=== PATIENT | male | born 1990 | race Caucasian/White ===

== ENCOUNTER 2017-11-29 16:48 | Observation (INO) | payer SELFPAY ==
[2017-11-29] VITALS (7 sets, daily range): BP systolic 90–116; BP diastolic 51–84; PULSE 101–123; RESP 15–23; TEMP 97.6; O2SAT 97–100
[~2017-11-29] VITALS: Ht 195.6 cm; Wt 72.0 kg
--- NOTE | 2017-11-29 17:26 | PD ---
HPI Chief Complaint: OD/ Ingestion Time Seen by Provider: 17:08 Travel History International Travel<30 days: No Contact w/Intl Traveler<30days: No Traveled to known affect area: No History of Present Illness HPI 26-year-old male brought in by ambulance for altered mental status. The patient was found by friends in a motel room altered. He has history of IV drug abuse. His blood glucose was noted to be 25. He was given D50 by paramedics as well as Narcan. Patient's mental status significantly improved after receiving Narcan. He admits to overdosing on heroin today. He also smoked crack cocaine. His mom is present and tells me that he was making suicidal statements earlier today. The patient is denying suicidal ideation. Patient's mom believes that this may have been an intentional overdose as the patient has a child on the way. She tells me he has history of depression. She would like him to be placed under a Aguirre act. PFSH Past Medical History Depression: Yes Neurologic: Yes (CONCUSSION X2) Seizures: Yes ( A CHILD) Influenza Vaccination: No Past Surgical History Oral Surgery: Yes Social History Alcohol Use: No Tobacco Use: Yes (07/22 PPD) Substance Use: Yes (HEROIN, MARIJUANA, CRACK) Allergies-Medications (Allergen,Severity, Reaction): Coded Allergies: No Known Allergies (Unverified , 11/29/17) Review of Systems Except as stated in HPI: all other systems reviewed are Neg Physical Exam Narrative GENERAL: Well-developed, well-nourished, drowsy, easily arousable, no apparent distress. SKIN: Focused skin assessment warm/dry. HEAD: Atraumatic. Normocephalic. EYES: Pupils equal, round, 3 mm, reactive to light. No scleral icterus. No injection or drainage. ENT: No nasal bleeding or discharge. Mucous membranes pink and dry. NECK: Trachea midline. No JVD. CARDIOVASCULAR: Regular rate and rhythm. No murmur appreciated. RESPIRATORY: No accessory muscle use. Clear to auscultation. Breath sounds equal bilaterally. GASTROINTESTINAL: Abdomen soft, non-tender, nondistended. MUSCULOSKELETAL: No obvious deformities. No clubbing. No cyanosis. No edema. NEUROLOGICAL: Drowsy, easily arousable. No focal deficits. No obvious cranial nerve deficits. Motor grossly within normal limits. Normal speech. PSYCHIATRIC: Unable to assess. Data Data Last Documented VS Vital Signs Date Time Temp Pulse Resp B/P (MAP) Pulse Ox O2 Delivery O2 Flow Rate FiO2 11/29/17 19:24 106 15 116/57 (76) 97 Room Air Orders Orders Complete Blood Count With Diff (11/29/17 17:13) Comprehensive Metabolic Panel (11/29/17 17:13) Thyroid Stimulating Hormone (11/29/17 17:13) Psych Screen (11/29/17 17:13) Drug Screen, Random Urine (11/29/17 17:13) Alcohol (Ethanol) (11/29/17 17:13) Salicylates (Aspirin) (11/29/17 17:13) Tylenol (Acetaminophen) (11/29/17 17:13) Sodium Chlor 0.9% 1000 Ml Inj (Ns 1000 M (11/29/17 17:30) Sodium Chlor 0.9% 1000 Ml Inj (Ns 1000 M (11/29/17 19:30) Us Abdomen Liver (11/29/17 ) Sodium Chlor 0.9% 1000 Ml Inj (Ns 1000 M (11/29/17 19:45) Labs Laboratory Tests Test 11/29/17 18:36 White Blood Count 13.4 TH/MM3 Red Blood Count 4.51 MIL/MM3 Hemoglobin 14.4 GM/DL Hematocrit 42.1 % Mean Corpuscular Volume 93.4 FL Mean Corpuscular Hemoglobin 31.9 PG Mean Corpuscular Hemoglobin Concent 34.2 % Red Cell Distribution Width 12.6 % Platelet Count 342 TH/MM3 Mean Platelet Volume 7.5 FL Neutrophils (%) (Auto) 93.2 % Lymphocytes (%) (Auto) 2.0 % Monocytes (%) (Auto) 4.8 % Eosinophils (%) (Auto) 0.0 % Basophils (%) (Auto) 0.0 % Neutrophils # (Auto) 12.5 TH/MM3 Lymphocytes # (Auto) 0.3 TH/MM3 Monocytes # (Auto) 0.6 TH/MM3 Eosinophils # (Auto) 0.0 TH/MM3 Basophils # (Auto) 0.0 TH/MM3 CBC Comment DIFF FINAL Differential Comment Blood Urea Nitrogen 23 MG/DL Creatinine 1.24 MG/DL Random Glucose 245 MG/DL Total Protein 7.6 GM/DL Albumin 4.5 GM/DL Calcium Level 8.3 MG/DL Alkaline Phosphatase 62 U/L Aspartate Amino Transf (AST/SGOT) 639 U/L Alanine Aminotransferase (ALT/SGPT) 829 U/L Total Bilirubin 1.0 MG/DL Sodium Level 134 MEQ/L Potassium Level 4.1 MEQ/L Chloride Level 95 MEQ/L Carbon Dioxide Level 26.3 MEQ/L Anion Gap 13 MEQ/L Estimat Glomerular Filtration Rate 50 ML/MIN Thyroid Stimulating Hormone 3rd Gen 0.313 uIU/ML Salicylates Level LESS THAN 1.7 MG/DL Acetaminophen Level LESS THAN 2.0 MCG/ML Ethyl Alcohol Level LESS THAN 3 MG/DL MDM Medical Decision Making Medical Screen Exam Complete: Yes Emergency Medical Condition: Yes Differential Diagnosis Opioid overdose, polysubstance abuse, metabolic abnormality Narrative Course Although the patient is denying suicidal intent, the patient's mom Xochitl Moore strongly believes that he intentionally overdosed on opiates today. He has done this once in the past. He uses opiates regularly. He has a history of depression. She tells me he was making suicidal statements earlier today. She would like him to be placed under a Aguirre Act. Initial vital signs show heart rate 123, blood pressure 107/84, pulse ox 100% on room air. CBC: WBC 13.4, hemoglobin 14.4, hematocrit 42.1, platelets 342, neutrophils 93%. CMP is remarkable for random glucose 245, AST 639, ALT 829. TSH is 0.313. Tylenol, alcohol, and salicylate levels are negative. The patient was made aware of all findings including transaminitis. He reports history of hepatitis C. He is declining right upper quadrant ultrasound. The patient remains tachycardic with a heart rate in the 115 range. He will be given another liter of normal saline IV. At approximately 7:00 PM at the end of my shift the patient was signed out to oncoming provider Dr. Bernstein. Diagnosis Primary Impression: Opioid overdose Qualified Codes: T40.2X4A - Poisoning by other opioids, undetermined, initial encounter Additional Impression: Sinus tachycardia Jose Ackerman MD November 29, 2017 17:26
[2017-11-29] MEDS ORDERED: SODIUM CHLOR 0.9% 1000 ML INJ 1,000 ML IV ONE ×3 (17:30→19:45)
[2017-11-29 18:52] LABS: AUTOMATED NEUTROPHIL # 12.5 TH/MM3 (1.8-7.7); HEMATOCRIT 42.1 % (39.0-51.0); HEMOGLOBIN 14.4 GM/DL (13.0-17.0); LYMPHOCYTE # 0.3 TH/MM3 (1.0-4.8); MEAN CELL VOLUME 93.4 FL (80.0-100.0); MEAN CORPUSCULAR HEMOGLOBIN 31.9 PG (27.0-34.0); MEAN CORPUSCULAR HGB CONC 34.2 % (32.0-36.0); MEAN PLATELET VOLUME 7.5 FL (7.0-11.0); MONO % 4.8 % (0.0-8.0); MONOCYTE # 0.6 TH/MM3 (0-0.9); NEUT % 93.2 % (16.0-70.0); PLATELET COUNT 342 TH/MM3 (150-450); RED BLOOD COUNT 4.51 MIL/MM3 (4.50-5.90); RED CELL DISTRIBUTION WIDTH 12.6 % (11.6-17.2); WHITE BLOOD COUNT 13.4 TH/MM3 (4.0-11.0)
[2017-11-29 19:16] LABS: ALBUMIN 4.5 GM/DL (3.4-5.0); BICARBONATE 26.3 MEQ/L (21.0-32.0); BLOOD UREA NITROGEN 23 MG/DL (7-18); CALCIUM 8.3 MG/DL (8.5-10.1); CHLORIDE 95 MEQ/L (98-107); CREATININE 1.24 MG/DL (0.60-1.30); GLOMERULAR FILTRATION RATE 50 ML/MIN (>89); GLUCOSE,RANDOM 245 MG/DL (74-106); SODIUM (NA) 134 MEQ/L (136-145)
[2017-11-29 19:17] LABS: ALT (GPT) 829 U/L (12-78); AST (GOT) 639 U/L (15-37)
[2017-11-29 19:27] LABS: ALKALINE PHOSPHATASE 62 U/L (45-117); TOTAL PROTEIN 7.6 GM/DL (6.4-8.2)
[2017-11-29 19:30] LABS: ACETAMINOPHEN LESS THAN 2.0 MCG/ML (10.0-30.0)
[2017-11-29] MEDS ORDERED: NALOXONE HCL 0.4 MG/ML AMP ONE ×2 (20:12→20:13)
[2017-11-29] MEDS ORDERED: NALOXONE HCL 2 MG/2 ML VIAL IM ONE (20:15)
[2017-11-29] MEDS ORDERED: NALOXONE HCL 2 MG/2 ML VIAL IV PUSH ONE (20:15)
--- NOTE | 2017-11-29 21:57 | PD ---
Data Data Last Documented VS Vital Signs Date Time Temp Pulse Resp B/P (MAP) Pulse Ox O2 Delivery O2 Flow Rate FiO2 11/29/17 20:21 102 16 104/62 (76) 100 Room Air 11/29/17 19:41 97.6 Orders Orders Complete Blood Count With Diff (11/29/17 17:13) Comprehensive Metabolic Panel (11/29/17 17:13) Thyroid Stimulating Hormone (11/29/17 17:13) Psych Screen (11/29/17 17:13) Drug Screen, Random Urine (11/29/17 17:13) Alcohol (Ethanol) (11/29/17 17:13) Salicylates (Aspirin) (11/29/17 17:13) Tylenol (Acetaminophen) (11/29/17 17:13) Sodium Chlor 0.9% 1000 Ml Inj (Ns 1000 M (11/29/17 17:30) Sodium Chlor 0.9% 1000 Ml Inj (Ns 1000 M (11/29/17 19:30) Sodium Chlor 0.9% 1000 Ml Inj (Ns 1000 M (11/29/17 19:45) Naloxone Inj (Narcan Inj) (11/29/17 20:15) Naloxone Inj (Narcan Inj) (11/29/17 20:15) Naloxone Inj (Narcan Inj) (11/29/17 20:12) Naloxone Inj (Narcan Inj) (11/29/17 20:13) Electrocardiogram (11/29/17 17:04) Labs Laboratory Tests Test 11/29/17 18:36 White Blood Count 13.4 TH/MM3 Red Blood Count 4.51 MIL/MM3 Hemoglobin 14.4 GM/DL Hematocrit 42.1 % Mean Corpuscular Volume 93.4 FL Mean Corpuscular Hemoglobin 31.9 PG Mean Corpuscular Hemoglobin Concent 34.2 % Red Cell Distribution Width 12.6 % Platelet Count 342 TH/MM3 Mean Platelet Volume 7.5 FL Neutrophils (%) (Auto) 93.2 % Lymphocytes (%) (Auto) 2.0 % Monocytes (%) (Auto) 4.8 % Eosinophils (%) (Auto) 0.0 % Basophils (%) (Auto) 0.0 % Neutrophils # (Auto) 12.5 TH/MM3 Lymphocytes # (Auto) 0.3 TH/MM3 Monocytes # (Auto) 0.6 TH/MM3 Eosinophils # (Auto) 0.0 TH/MM3 Basophils # (Auto) 0.0 TH/MM3 CBC Comment DIFF FINAL Differential Comment Blood Urea Nitrogen 23 MG/DL Creatinine 1.24 MG/DL Random Glucose 245 MG/DL Total Protein 7.6 GM/DL Albumin 4.5 GM/DL Calcium Level 8.3 MG/DL Alkaline Phosphatase 62 U/L Aspartate Amino Transf (AST/SGOT) 639 U/L Alanine Aminotransferase (ALT/SGPT) 829 U/L Total Bilirubin 1.0 MG/DL Sodium Level 134 MEQ/L Potassium Level 4.1 MEQ/L Chloride Level 95 MEQ/L Carbon Dioxide Level 26.3 MEQ/L Anion Gap 13 MEQ/L Estimat Glomerular Filtration Rate 50 ML/MIN Thyroid Stimulating Hormone 3rd Gen 0.313 uIU/ML Salicylates Level LESS THAN 1.7 MG/DL Acetaminophen Level LESS THAN 2.0 MCG/ML Ethyl Alcohol Level LESS THAN 3 MG/DL [facility] Medical Record Reviewed: Yes Supervised Visit with SIOBHAN: No Narrative Course CBC & BMP Diagram 11/29/17 18:36 Total Protein 7.6, Albumin 4.5, Calcium Level 8.3 L, Alkaline Phosphatase 62, Aspartate Amino Transf (AST/SGOT) 639 H, Alanine Aminotransferase (ALT/SGPT) 829 H, Total Bilirubin 1.0 APAP/EtOH/Salicylates negative Pt with known hx hep C. He refuses imaging here. There is reasonably low probability for acute intraabdominal pathology. Pt is medically clear for psychiatric evaluation. Please refer to Dr Ackerman's note. Diagnosis Primary Impression: Opioid overdose Qualified Codes: T40.2X4A - Poisoning by other opioids, undetermined, initial encounter Additional Impression: Sinus tachycardia Mo Bernstein MD November 29, 2017 21:57
[2017-11-29] MEDS ORDERED: ASPIRIN 325 MG TAB PO ONE (23:00)
[2017-11-29 23:27] LABS: TROPONIN I LESS THAN 0.02 NG/ML (0.02-0.05)
--- NOTE | 2017-11-29 23:37 | HHI.HP ---
[facility] Primary Care Physician Admission Diagnosis AFIB; Amphetamine Abuse; Polysubstance OD Diagnoses: (1) Overdose Diagnosis: Principal (2) Suicide attempt Diagnosis: Principal (3) A-fib Diagnosis: Principal (4) Tobacco abuse Diagnosis: Principal Travel History International Travel<30 Days: No Contact w/Intl Traveler <30 Da: No Traveled to Known Affected Are: No History of Present Illness This is a 26-year-old male with a PMH of IVDU and Tobacco Abuse who is brought to the ER by EMS after being found down in a motel room following a heroin overdose. S/p Narcan by EMS w/ improvement. Pt admitted to heroin overdose and smoking crack earlier today. Aguirre Act in place as pt relayed to Mother he was having suicidal ideation. Had additional Narcan in ER w/ good response, was medically cleared for Psych, however pt noted to have A-fib w/ HR 110's. No h/o A-fib. S/p IVF in ER. Pt w/ no complaints of chest pain or SOB Review of Systems Except as stated in HPI: all other systems reviewed are Neg ROS: 14 point review of systems otherwise negative. Past Family Social History Past Medical History PMH: IVDU and Tobacco Abuse Past Surgical History PAST SURGICAL HISTORY: Oral Surgery Allergies: Coded Allergies: No Known Allergies (Unverified , 11/29/17) Family History PAST FAMILY HISTORY: Reviewed. No h/o DM or CAD Social History PAST SOCIAL HISTORY: Negative for alcohol. Smokes 1.5ppd. +IVDU w/ Heroin, + Marijuana/Crack Physical Exam Vital Signs Vital Signs Date Time Temp Pulse Resp B/P (MAP) Pulse Ox O2 Delivery O2 Flow Rate FiO2 11/29/17 22:30 114 16 96/54 (68) 98 Room Air 11/29/17 22:00 101 16 105/51 (69) 98 Room Air 11/29/17 20:21 102 16 104/62 (76) 100 Room Air 11/29/17 20:10 105 90/53 (65) 11/29/17 19:41 97.6 11/29/17 19:24 106 15 116/57 (76) 97 Room Air 11/29/17 17:07 123 23 107/84 (92) 100 Physical Exam PE: GENERAL: Young thin white male in no acute distress. Multiple tattoos HEENT: PERRLA, EOMI. No scleral icterus or conjunctival pallor. No lid lag or facial droop. CARDIOVASCULAR: Irregularly irregular, and A. fib, HR 100's. No obvious murmurs to auscultation. No chest tenderness to palpation. RESPIRATORY: No obvious rhonchi or wheezing. Clear to auscultation. Breath sounds equal bilaterally. GASTROINTESTINAL: Abdomen soft, non-tender, nondistended. BS normal. MUSCULOSKELETAL: Extremities without clubbing, cyanosis, or edema. No obvious deformities. NEUROLOGICAL: Awake, alert and oriented x4. No focal neurologic deficits. Moving both upper and lower extremities spontaneously. Laboratory Laboratory Tests Test 11/29/17 18:36 White Blood Count 13.4 Red Blood Count 4.51 Hemoglobin 14.4 Hematocrit 42.1 Mean Corpuscular Volume 93.4 Mean Corpuscular Hemoglobin 31.9 Mean Corpuscular Hemoglobin Concent 34.2 Red Cell Distribution Width 12.6 Platelet Count 342 Mean Platelet Volume 7.5 Neutrophils (%) (Auto) 93.2 Lymphocytes (%) (Auto) 2.0 Monocytes (%) (Auto) 4.8 Eosinophils (%) (Auto) 0.0 Basophils (%) (Auto) 0.0 Neutrophils # (Auto) 12.5 Lymphocytes # (Auto) 0.3 Monocytes # (Auto) 0.6 Eosinophils # (Auto) 0.0 Basophils # (Auto) 0.0 CBC Comment DIFF FINAL Differential Comment Blood Urea Nitrogen 23 Creatinine 1.24 Random Glucose 245 Total Protein 7.6 Albumin 4.5 Calcium Level 8.3 Alkaline Phosphatase 62 Aspartate Amino Transf (AST/SGOT) 639 Alanine Aminotransferase (ALT/SGPT) 829 Total Bilirubin 1.0 Sodium Level 134 Potassium Level 4.1 Chloride Level 95 Carbon Dioxide Level 26.3 Anion Gap 13 Estimat Glomerular Filtration Rate 50 Total Creatine Kinase 307 Troponin I LESS THAN 0.02 Thyroid Stimulating Hormone 3rd Gen 0.313 Salicylates Level LESS THAN 1.7 Acetaminophen Level LESS THAN 2.0 Ethyl Alcohol Level LESS THAN 3 Result Diagram: 11/29/17183511/29/171835 Caprini VTE Risk Assessment Caprini VTE Risk Assessment: No/Low Risk (score <= 1) Caprini Risk Assessment Model Point Value = 1 Point Value = 2 Point Value = 3 Point Value = 5 Age 41-60 Minor surgery BMI > 25 kg/m2 Swollen legs Varicose veins or History of unexplained or recurrent spontaneous Oral contraceptives or hormone replacement Sepsis (< 1 month) Serious lung disease, including pneumonia (< 1 month) Abnormal pulmonary function Acute myocardial infarction Congestive heart failure (< 1 month) History of inflammatory bowel disease Medical patient at bed rest Age 61-74 Arthroscopic surgery Major open surgery (> 45 min) Laparoscopic surgery (> 45 min) Malignancy Confined to bed (> 72 hours) Immobilizing plaster cast Central venous access Age >= 75 History of VTE Family history of VTE Factor V Leiden Prothrombin [id number] Lupus anticoagulant Anticardiolipin antibodies Elevated serum homocysteine Heparin-induced thrombocytopenia Other congenital or acquired thrombophilia Stroke (< 1 month) Elective arthroplasty Hip, pelvis, or leg fracture Acute spinal cord injury (< 1 month) Prophylaxis Regimen Total Risk Factor Score Risk Level Prophylaxis Regimen 0-1 Low Early ambulation 2 Moderate Order ONE of the following: *Sequential Compression Device (SCD) *Heparin 5000 units SQ BID 3-4 Higher Order ONE of the following medications: *Heparin 5000 units SQ TID *Enoxaparin/Lovenox 40 mg SQ daily (WT < 150 kg, CrCl > 30 mL/min) *Enoxaparin/Lovenox 30 mg SQ daily (WT < 150 kg, CrCl > 10-29 mL/min) *Enoxaparin/Lovenox 30 mg SQ BID (WT < 150 kg, CrCl > 30 mL/min) AND/OR *Sequential Compression Device (SCD) 5 or more Highest Order ONE of the following medications: *Heparin 5000 units SQ TID (Preferred with Epidurals) *Enoxaparin/Lovenox 40 mg SQ daily (WT < 150 kg, CrCl > 30 mL/min) *Enoxaparin/Lovenox 30 mg SQ daily (WT < 150 kg, CrCl > 10-29 mL/min) *Enoxaparin/Lovenox 30 mg SQ BID (WT < 150 kg, CrCl > 30 mL/min) AND *Sequential Compression Device (SCD) Assessment and Plan Problem List: (1) Overdose ICD Code: T50.901A - Poisoning by unspecified drugs, medicaments and biological substances, accidental (unintentional), initial encounter (2) Suicide attempt ICD Code: T14.91XA - Suicide attempt, initial encounter (3) A-fib ICD Code: I48.91 - Unspecified atrial fibrillation (4) Tobacco abuse ICD Code: Z72.0 - Tobacco use Assessment and Plan A/P: 1. Overdose: s/p Heroin Overdose earlier today, admits to using Crack Cocaine as well, given Narcan by EMS w/ good response, additional Narcan in ER, now awake/alert. Telemetry, IVF for hydration. 2. Suicide Attempt: Per report, pt had relayed to Mother he was suicidal, currently under Aguirre Act. Sitter, Consult Psych for further evaluation. 3. A-fib: HR 110's while in ER, likely related to drug use, continue IVF, telemetry, admit for Observation for closer monitoring. If persistent, will consult Cardiology in am for further evaluation. 4. Tobacco Abuse: Pt counselled. No NicoDerm to avoid vasoconstriction 5. DVT Prophylaxis: SCD/Teds 6. Social work for d/c planning as needed. 7. Case discussed w/ ER physician at length, labs/records/imaging reviewed by Judith Laura MD November 29, 2017 23:37
[2017-11-29] MEDS ORDERED: LACTULOSE SYRUP 20 GM/30 ML CUP PO PRN (23:45)
[2017-11-29] MEDS ORDERED: MAGNESIUM HYDROXIDE SUSP 30 ML CUP PO PRN (23:45)
[2017-11-29] MEDS ORDERED: METOCLOPRAMIDE HCL 10 MG/2 ML VIAL IV PUSH PRN (23:45)
[2017-11-29] MEDS ORDERED: BISACODYL 10 MG SUPP RECTAL PRN (23:45)
[2017-11-29] MEDS ORDERED: SODIUM CHLORIDE 0.9% FLUSH 10 ML FLUSH IV FLUSH PRN (23:45)
[2017-11-29] MEDS ORDERED: SENNOSIDES 8.6 MG TAB PO PRN (23:45)
[2017-11-30] VITALS (16 sets, daily range): BP systolic 96–114; BP diastolic 51–68; PULSE 70–99; RESP 16–20; TEMP 97.5–98.6; O2SAT 96–98
[2017-11-30 00:01] LABS: INTERNATIONAL NORMALIZED RATIO 1.3 RATIO; PROTHROMBIN TIME - PATIENT 12.7 SEC (9.8-11.6)
--- NOTE | 2017-11-30 00:18 | RADRPT ---
EXAM DATE/TIME: 11/29/2017 23:42 [facility] COMPARISON: No previous studies available for comparison. INDICATIONS : Overdosed tonight. Chest pain and shortness of breath. MEDICAL HISTORY : Seizures. SURGICAL HISTORY : None. ENCOUNTER: Initial ACUITY: 1 day PAIN SCORE: 6/10 LOCATION: Bilateral chest FINDINGS: 2 AP erect portable views of the chest demonstrates the lungs to be symmetrically aerated without higinio dence of mass, infiltrate or effusion. The cardiomediastinal contours are unremarkable. Osseous str uctures are intact. CONCLUSION: No acute disease. Shaquille French MD on November 30, 2017 at 0:16 Board Certified Radiologist. This report was verified electronically.
[2017-11-30] MEDS: SODIUM CHLOR 0.9% 1000 ML INJ 1,000 ML IV SCH ×3 (01:16→13:27)
[2017-11-30 08:15] LABS: AUTOMATED NEUTROPHIL # 4.5 TH/MM3 (1.8-7.7); BASOPHIL % 0.3 % (0.0-2.0); EOSINOPHIL # 0.2 TH/MM3 (0-0.4); EOSINOPHIL % 2.6 % (0.0-4.0); HEMATOCRIT 37.2 % (39.0-51.0); HEMOGLOBIN 12.7 GM/DL (13.0-17.0); LYMPH % 25.3 % (9.0-44.0); LYMPHOCYTE # 1.9 TH/MM3 (1.0-4.8); MEAN CELL VOLUME 93.1 FL (80.0-100.0); MEAN CORPUSCULAR HEMOGLOBIN 31.7 PG (27.0-34.0); MEAN PLATELET VOLUME 8.1 FL (7.0-11.0); MONO % 12.6 % (0.0-8.0); NEUT % 59.2 % (16.0-70.0); PLATELET COUNT 274 TH/MM3 (150-450); RED BLOOD COUNT 3.99 MIL/MM3 (4.50-5.90); RED CELL DISTRIBUTION WIDTH 12.6 % (11.6-17.2); WHITE BLOOD COUNT 7.6 TH/MM3 (4.0-11.0)
[2017-11-30 08:34] LABS: ALBUMIN 3.5 GM/DL (3.4-5.0); AST (GOT) 462 U/L (15-37); BICARBONATE 27.1 MEQ/L (21.0-32.0); BLOOD UREA NITROGEN 20 MG/DL (7-18); CALCIUM 7.8 MG/DL (8.5-10.1); CHLORIDE 105 MEQ/L (98-107); CREATININE 0.66 MG/DL (0.60-1.30); GLOMERULAR FILTRATION RATE 104 ML/MIN (>89); GLUCOSE,RANDOM 72 MG/DL (74-106); SODIUM (NA) 139 MEQ/L (136-145)
[2017-11-30 08:35] LABS: ALT (GPT) 672 U/L (12-78)
[2017-11-30 08:38] LABS: ALKALINE PHOSPHATASE 45 U/L (45-117); TOTAL BILIRUBIN ADULT 0.4 MG/DL (0.2-1.0)
[2017-11-30] MEDS ORDERED: DOCUSATE SODIUM 50 MG/SENNA 8.6 MG TAB PO SCH (09:00)
[2017-11-30] MEDS ORDERED: SODIUM CHLORIDE 0.9% FLUSH 10 ML FLUSH IV FLUSH SCH (09:00)
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
--- NOTE | 2017-11-30 16:22 | HHI.PR ---
Subjective Remarks Patient says he is feeling much better. Feels like going home. Denies any chest pain or shortness of breath. Denies nausea or vomiting. Denies abdominal pain. Objective Vital Signs Date Time Temp Pulse Resp B/P (MAP) Pulse Ox O2 Delivery O2 Flow Rate FiO2 11/30/17 14:00 70 11/30/17 13:00 82 11/30/17 12:00 86 11/30/17 11:04 98.0 85 16 112/62 (79) 97 11/30/17 11:00 85 11/30/17 10:00 80 11/30/17 09:00 80 11/30/17 08:00 82 11/30/17 07:34 Room Air 11/30/17 07:34 97.5 97 16 114/68 (83) 97 11/30/17 07:00 85 11/30/17 06:00 87 11/30/17 05:09 Room Air 11/30/17 05:00 93 11/30/17 04:00 99 11/30/17 04:00 98.2 99 18 96/64 (75) 98 11/30/17 03:00 88 11/30/17 02:00 98.6 88 20 96/63 (74) 96 11/30/17 02:00 88 11/30/17 01:45 11/30/17 00:36 96 16 102/51 (68) 98 Room Air 11/29/17 22:30 114 16 96/54 (68) 98 Room Air 11/29/17 22:00 101 16 105/51 (69) 98 Room Air 11/29/17 20:21 102 16 104/62 (76) 100 Room Air 11/29/17 20:10 105 90/53 (65) 11/29/17 19:41 97.6 11/29/17 19:24 106 15 116/57 (76) 97 Room Air 11/29/17 17:07 123 23 107/84 (92) 100 I/O 11/29/17 11/29/17 11/29/17 11/30/17 11/30/17 11/30/17 07:00 15:00 23:00 07:00 15:00 23:00 Intake Total 1100 ml Output Total 500 ml Balance 600 ml Intake Oral 500 ml IV Total 600 ml Output Urine Total 500 ml # Bowel Movements 0 Result Diagram: 11/30/1725 11/30/1725 Objective Remarks GENERAL: Patient sitting up in bed. Appears comfortable. Awake and alert. Oriented 3. SKIN: Warm and dry. HEAD: Normocephalic. EYES: No scleral icterus. No injection or drainage. NECK: Supple, trachea midline. No JVD. CARDIOVASCULAR: Regular rate and rhythm without murmurs, gallops, or rubs. RESPIRATORY: Breath sounds equal bilaterally. No accessory muscle use. GASTROINTESTINAL: Abdomen soft, non-tender, nondistended. No right upper quadrant tenderness. Positive bowel sounds. MUSCULOSKELETAL: No cyanosis, or edema. BACK: Nontender without obvious deformity. No CVA tenderness. A/P Assessment and Plan //Overdose: s/p Heroin Overdose earlier today, admits to using Crack Cocaine as well, given Narcan by EMS w/ good response, additional Narcan in ER, now awake/alert. Telemetry, IVF for hydration. = Improved. Awake, alert. //Suicide Attempt: Per report, pt had relayed to Mother he was suicidal, currently under Aguirre Act. Sitter, Consult Psych for further evaluation. //A-fib: HR 110's while in ER, likely related to drug use, continue IVF, telemetry, admit for Observation for closer monitoring. If persistent, will consult Cardiology in am for further evaluation. = Atrial fibrillation was likely secondary to cocaine, near from heroin overdose. Chads score 0. Avoid cocaine, heroin. Follow-up primary care. //Tobacco Abuse: Pt counselled. No NicoDerm to avoid vasoconstriction //Transaminitis. LFTs elevated but improving. Will order hepatitis profile to be added to labs. CK within normal limits. Likely could be secondary to cocaine/heroin. Patient denies acetaminophen use. He will need to follow with primary care. Discussed with patient conveys understanding. //TSH 0.3. Slightly low however will need to be rechecked in nonacute setting. //DVT Prophylaxis: SCD/Teds Discharge Planning Discharge inpatient psychiatry = Will need liver labs followed as outpatient. Patient conveys understanding. Hepatitis profile is pending here. John Mills MD November 30, 2017 16:22
--- NOTE | 2017-11-30 17:14 | EKG ---
Date Performed: 11/29/2017 Time Performed: 22:45:48 PTAGE: 89 years EKG: ATRIAL FIBRILLATION DIFFUSE ST ELEVATIONS PREVIOUS TRACING : 11/29/2017 20.27 Since the previous tracing, no significant change not ed DOCTOR: Greyson Estrada Interpretating Date/Time 11/30/2017 17:14:14
--- NOTE | 2017-11-30 17:23 | EKG ---
Date Performed: 11/29/2017 Time Performed: 20:27:42 PTAGE: 89 years EKG: ATRIAL FIBRILLATION MILD DIFFUSE ST ELEVATION, PROBABLY EARLY REPOLARIZATION ABNORMAL RHYTH M ECG PREVIOUS TRACING : 11/29/2017 17.04 Since the previous tracing, no significant change noted DOCTOR: Greyson Estrada Interpretating Date/Time 11/30/2017 17:22:27
--- NOTE | 2017-11-30 17:32 | EKG ---
Date Performed: 11/29/2017 Time Performed: 17:04:06 PTAGE: 89 years EKG: ATRIAL FIBRILLATION WITH RAPID VENTRICULAR RESPONSE ABNORMAL RHYTHM ECG NO PREVIOUS TRACING DOCTOR: Greyson Estrada Interpretating Date/Time 11/30/2017 17:31:59
== END 2017-11-30 15:14 ==
LOC: NEPE 16:48 → NEDA 23:25 → EDBD 23:25 → HCIS 11-30 01:33
PROVIDERS: ADMIT Internal Medicine; ATTEND Internal Medicine
DX: T40.2X2A Poisoning by other opioids, intentional self-harm, initial encounter (principal); I48.91 Unspecified atrial fibrillation; F43.21 Adjustment disorder with depressed mood; F14.90 Cocaine use, unspecified, uncomplicated; F15.10 Other stimulant abuse, uncomplicated; I95.9 Hypotension, unspecified; R74.0 Nonspecific elevation of levels of transaminase and lactic acid dehydrogenase [LDH]; Z72.0 Tobacco use
CPT/HCPCS: 71045; 80053; 80307; 82550; 82552; 83880; 84443; 84484; 85025; 85610; 85730; 93005; 96361; 96372; 96374; 99285; G0378; J2310; J7030

== ENCOUNTER 2017-11-30 16:24 | Inpatient (IN) | payer SELFPAY ==
[~2017-11-30] VITALS: Ht 193 cm; Wt 66.8 kg
[2017-11-30 16:55] VITALS: BP 114/67; PULSE 72; RESP 18; TEMP 98.3; O2SAT 98
[2017-11-30] MEDS ORDERED: ALUMINUM/MAGNESIUM/SIMETH 30 ML CUP PO PRN (18:30)
[2017-11-30] MEDS ORDERED: hydrOXYzine HCL 50 MG TAB PO PRN (18:30)
[2017-11-30] MEDS ORDERED: MAGNESIUM HYDROXIDE SUSP 30 ML CUP PO PRN (18:30)
[2017-11-30] MEDS ORDERED: ACETAMINOPHEN 325 MG TAB PO PRN (18:30)
[2017-11-30] MEDS ORDERED: REMOVE OLD NICOTINE PATCH T-DERMAL SCH (21:00)
[2017-12-01 06:16] VITALS: BP 135/67; PULSE 106; RESP 17; TEMP 97.8; O2SAT 97
[2017-12-01] MEDS ORDERED: NICOTINE 21 MG/24 HR PATCH T-DERMAL SCH (09:00)
[2017-12-01 09:43] LABS: BICARBONATE 27.3 MEQ/L (21.0-32.0); BLOOD UREA NITROGEN 14 MG/DL (7-18); CALCIUM 8.4 MG/DL (8.5-10.1); CHLORIDE 107 MEQ/L (98-107); CREATININE 0.71 MG/DL (0.60-1.30); GLOMERULAR FILTRATION RATE 136 ML/MIN (>89); GLUCOSE,RANDOM 68 MG/DL (74-106); SODIUM (NA) 142 MEQ/L (136-145)
[2017-12-01 09:44] LABS: CHOLESTEROL 100 MG/DL (120-200); TRIGLYCERIDES 48 MG/DL (42-150)
[2017-12-01 09:46] LABS: CHOLESTEROL/ HDL RATIO 1.79 RATIO; HDL CHOLESTEROL 55.6 MG/DL (40.0-60.0); LDL CHOLESTEROL 35 MG/DL (0-99)
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
== END 2017-12-01 14:55 | disposition home or self-care (01) | DRG 881 ==
LOC: H260 17:08
PROVIDERS: ADMIT Psychiatry & Neurology Psychiatry; ATTEND Psychiatry & Neurology Psychiatry
DX: F43.21 Adjustment disorder with depressed mood (principal); F19.10 Other psychoactive substance abuse, uncomplicated
CPT/HCPCS: 80048; 80061; 80074; 83036